=== PATIENT | female | born 1985 | race Caucasian/White ===

== ENCOUNTER 2019-05-23 21:38 | Emergency (ER) | payer SELFPAY ==
--- NOTE | 2019-05-23 22:11 | ER Document Report ---
ED Medical Screen (RME) - General Chief Complaint: Skin Problem Stated Complaint: TOE PAIN Time Seen by Provider: 05/23/19 22:05 Mode of Arrival: Ambulatory Information source: Patient Notes: 33-year-old female presented to ED for complaint of pain to the lateral aspect of the left great toe nail. She had has had the pain for 4 days. She denies any fevers. She states she has been soaking it in some water with baking soda. She states it is not getting better. She has not had any fevers. She has not had any drainage. It does appear to be an ingrown toenail. I will have her soak her foot in some soapy water and have her reexamined after it has been soaked. Patient is alert oriented respirations regular nonlabored speaking in full sentences. I have greeted and performed a rapid initial assessment of this patient. A comprehensive ED assessment and evaluation of the patient, analysis of test results and completion of medical decision making process will be conducted by an additional ED providers. TRAVEL OUTSIDE OF THE [place] IN LAST 30 DAYS: No Physical Exam - Vital signs Vitals: Temp Pulse Resp BP Pulse Ox 97.7 F 71 16 114/68 99 05/23/19 21:43 05/23/19 21:43 05/23/19 21:43 05/23/19 21:43 05/23/19 21:43 Course - Vital Signs Vital signs: Temp Pulse Resp BP Pulse Ox 97.7 F 71 16 114/68 99 05/23/19 21:43 05/23/19 21:43 05/23/19 21:43 05/23/19 21:43 05/23/19 21:43
[2019-05-23] MEDS ORDERED: IBUPROFEN 600 MG TABLET PO ONE (22:12)
--- NOTE | 2019-05-24 00:05 | ER Document Report ---
ED General - General Chief Complaint: Skin Problem Stated Complaint: TOE PAIN Time Seen by Provider: 05/23/19 22:05 Mode of Arrival: Ambulatory Information source: Patient TRAVEL OUTSIDE OF THE [place] IN LAST 30 DAYS: No - HPI Onset: Other - over the last 4-5 days Onset/Duration: Gradual Quality of pain: Pressure, Throbbing Severity: Mild Pain Level: 2 Associated symptoms: Other - swelling and redness of skin around her left great toenail Exacerbated by: Walking, Other - palpation of her toe Relieved by: Denies Similar symptoms previously: No Recently seen / treated by doctor: No Notes: 33 year old female with no known PMH here for pain around her left great toenail on the outer aspect of the nail with redness and swelling of the skin. The patient denies a history of ingrown toe nails. The patient denies fevers, chills, sweats, nausea, vomiting, drainage from her toe. The patient denies trauma to her toe or toe nail. - Related Data Allergies/Adverse Reactions: No Known Allergies Allergy (Verified 05/23/19 22:16) Past Medical History - General Information source: Patient - Social History Smoking Status: Current Every Day Smoker Frequency of alcohol use: None Drug Abuse: None Lives with: Family Family History: Reviewed & Not Pertinent Patient has suicidal ideation: No Patient has homicidal ideation: No Review of Systems - Review of Systems Constitutional: No symptoms reported EENT: No symptoms reported Cardiovascular: No symptoms reported Respiratory: No symptoms reported Gastrointestinal: No symptoms reported Genitourinary: No symptoms reported Female Genitourinary: No symptoms reported Musculoskeletal: No symptoms reported Skin: Other Hematologic/Lymphatic: No symptoms reported Neurological/Psychological: No symptoms reported -: Yes All other systems reviewed and negative Physical Exam - Vital signs Vitals: Temp Pulse Resp BP Pulse Ox 97.7 F 71 16 114/68 99 05/23/19 21:43 05/23/19 21:43 05/23/19 21:43 05/23/19 21:43 05/23/19 21:43 - Notes Notes: GENERAL: Well-appearing, well-nourished and in no acute distress. HEAD: Atraumatic, normocephalic. EYES: Pupils equal round and reactive to light, extraocular movements intact, sclera anicteric, conjunctiva are normal. ENT: TMs normal, nares patent, oropharynx clear without exudates. Moist mucous membranes. NECK: Normal range of motion, supple without lymphadenopathy or JVD. LUNGS: Breath sounds clear to auscultation bilaterally and equal. No wheezes rales or rhonchi. HEART: Regular rate and rhythm without murmurs, rubs or gallops. ABDOMEN: Soft, nontender, normoactive bowel sounds. No guarding, no rebound. No masses appreciated. EXTREMITIES: Normal range of motion, no pitting or edema. No clubbing or cyanosis. NEUROLOGICAL: Cranial nerves II through XII grossly intact. Normal speech, normal gait. PSYCH: Normal mood, normal affect. SKIN: Left great toe with an ingrown toenail on the lateral aspect of the nail bed. Skin around this area is erythematous and warm and swollen (looks like a paronychia). Warm, Dry, normal turgor, no rashes or lesions noted. Course - Re-evaluation Re-evalutation: 05/24/19 00:38 The patient has a left great toe ingrown toenail. It appeared there could be a paronychia with a drainable collection of pus but during the wedge resection of the patient's toe nail no pus was able to be expressed once the patient's toe nail was unroofed from the skin. Patient told to use topical antibiotic ointment and she was DCed with a script for Keflex given the skin around her great toe looked somewhat infected. - Vital Signs Vital signs: Temp Pulse Resp BP Pulse Ox 97.7 F 71 16 114/68 99 05/23/19 21:43 05/23/19 21:43 05/23/19 21:43 05/23/19 21:43 05/23/19 21:43 Procedures - Additional Procedures Ingrown Toe Nail Wedge Resection Time performed: : Notes: 05/24/19 00:35 2cc of 1% Lidocaine was injected into the medial aspect of the patients left great toe to perform a digital block after betadine was applied. I then used a #11 bladed to remove a small wedge of the patients left great toe nail (lateral aspect). Although it appears there was a paronychia with drainable pus in the lateral aspect of the patient's left great toe, no purulent material was expressed once the nail was unroofed from the skin. Discharge - Discharge Clinical Impression: Ingrown left greater toenail Condition: Stable Disposition: HOME, SELF-CARE Instructions: Ingrown Nail ([facility]) Additional Instructions: Keep the dressing on your toe for 24 hours. After that wash your toe in soap and water several times a day and keep your toe covered in antbiotic ointmnent until it is completely healed. Take the prescribed oral antibiotics (Keflex) as well. Follow up with your primary care doctor or the primary care doctor listed in your paperwork today. Prescriptions: Cephalexin Monohydrate [Keflex 500 mg Capsule] 500 mg PO Q6H 7 Days #28 capsule Referrals: MAGALIE CLEMENS MD [[facility]] - Follow up as needed
[2019-05-24] MEDS ORDERED: LIDOCAINE 1% INJ-PF (10 MG/ML) 30 ML SDV ONE (00:11)
[2019-05-24] MEDS ORDERED: LIDOCAINE 1% INJ-PF (10 MG/ML) 30 ML SDV INJ ONE (00:15)
[2019-05-24 00:56] VITALS: BP 116/72
== END 2019-05-24 00:54 | disposition home or self-care (01) ==
LOC: ER 21:38
DX: L60.0 Ingrowing nail (principal); F17.200 Nicotine dependence, unspecified, uncomplicated
CPT/HCPCS: 99283; 11765; J3490